=== PATIENT | female | born 1940 | race Caucasian/White ===

== ENCOUNTER 2016-12-15 14:08 | Inpatient (IN) | payer MEDICARE, OTHER ==
[2016-12-15] MEDS ORDERED: LISINOPRIL-HCT1 EAC3 PO (14:31)
[2016-12-15] MEDS ORDERED: LEXAPRO10 M2 PO (14:31)
[2016-12-15] MEDS ORDERED: LOFIBRA160 M1 PO (14:32)
[2016-12-15] MEDS ORDERED: ZOCOR40 M1 PO (14:32)
[2016-12-15] MEDS ORDERED: CLOBETASOL PROP50 M1 TP (14:36)
[2016-12-15] MEDS ORDERED: PROAIR HFA8.5 GM INH (14:37)
[2016-12-15] MEDS ORDERED: ASPIRIN EC81 MG PO (14:42)
[2016-12-15] MEDS ORDERED: FISH OIL 11000 MG/CA PO (14:42)
[2016-12-15] MEDS ORDERED: CITRACAL + D31 EACH PO (14:43)
[2016-12-15] MEDS ORDERED: IBUPROFEN200 M2 PO (14:43)
[2016-12-15 15:10] LABS: PROTHROMBIN TIME 11.2 SECONDS (9.0-13.6)
[2016-12-15 15:29] LABS: ANION GAP 16 mmol/L (0-20); BLOOD UREA NITROGEN 31 mg/dl (6-24); CALCIUM 8.7 mg/dl (8.5-10.5); CARBON DIOXIDE-VENOUS 25 mmol/L (22-32); CHLORIDE 106 mmol/l (96-110); CREATININE 1.39 mg/dl (0.50-1.10); GLUCOSE 206 mg/dL (70-110); POTASSIUM 3.6 mmol/L (3.7-5.1); SODIUM 143 mmol/L (135-145); eGFR VALUE FOR BLACK 43 mL/Min
[2016-12-15 15:30] LABS: BASO % 0.2 % (0-2); EOS % 0.4 % (0-7); EOSINOPHIL ABSOLUTE COUNT 0.1 tho/cmm (0.0-0.7); HCT-HEMATOCRIT 37.3 % (34.0-49.0); HGB-HEMOGLOBIN 11.6 gm/dl (12.0-15.5); IMMATURE GRANULOCYTES ABSOLUTE 0.09 tho/cmm (0-0.03); IMMATURE GRANULOCYTES PERCENT 0.4 % (0-0.3); LYMPH % 5.4 % (20-45); LYMPH ABSOLUTE COUNT 1.1 tho/cmm (0.8-4.5); MCH (MEAN CORPUSCULAR HGB) 30.1 pg (28.0-32.0); MCHC MEAN CORPUSCULAR HGB CONC 31.1 % (32.0-36.0); MCV (MEAN CELL VOLUME) 96.6 fl (82.0-96.0); MEAN PLATELET VOLUME 9.9 cmc (9.4-12.4); NEUTROPHIL ABSOLUTE COUNT 18.5 tho/cmm (1.6-8.0); NEUTROPHIL-AUTOMATED 18.5 tho/cmm (1.6-8.0); NEUTROPHILS % 88.6 % (40-80); PLATELET COUNT 305 tho/cmm (150-450); RED BLOOD COUNT 3.86 mil/cmm (4.00-5.20); RED CELL DISTRIBUTION WIDTH 13.2 % (12.4-16.4); WHITE BLOOD COUNT 20.9 tho/cmm (4.0-10.0)
[2016-12-15 16:29] LABS: URINE BILIRUBIN NEGATIVE (NEG); URINE BLOOD NEGATIVE (NEG); URINE GLUCOSE (UA) NEGATIVE (NEG); URINE KETONE SMALL (NEG); URINE LEUKOCYTE ESTERASE POSITIVE (NEG); URINE NITRITE NEGATIVE (NEG); URINE PROTEIN MODERATE (NEG); URINE SPECIFIC GRAVITY 1.025 (1.003-1.030)
[2016-12-15 16:30] LABS: URINE APPEARANCE HAZY; URINE COLOR YELLOW
[2016-12-15 16:37] LABS: URINE BACTERIA 1+; URINE EPITHELIAL CELLS 0-1 /[HPF] (0-10); URINE RBC 0 /[HPF] (0-5)
[2016-12-16 05:30] LABS: BASO % 0.2 % (0-2); EOS % 0.2 % (0-7); HCT-HEMATOCRIT 31.9 % (34.0-49.0); IMMATURE GRANULOCYTES ABSOLUTE 0.03 tho/cmm (0-0.03); IMMATURE GRANULOCYTES PERCENT 0.2 % (0-0.3); LYMPH % 9.2 % (20-45); LYMPH ABSOLUTE COUNT 1.1 tho/cmm (0.8-4.5); MCH (MEAN CORPUSCULAR HGB) 29.9 pg (28.0-32.0); MCHC MEAN CORPUSCULAR HGB CONC 31.3 % (32.0-36.0); MCV (MEAN CELL VOLUME) 95.2 fl (82.0-96.0); MEAN PLATELET VOLUME 9.6 cmc (9.4-12.4); MONO % 6.8 % (0-12); MONOCYTE ABSOLUTE COUNT 0.8 tho/cmm (0.0-1.2); NEUTROPHIL ABSOLUTE COUNT 10.3 tho/cmm (1.6-8.0); NEUTROPHIL-AUTOMATED 10.3 tho/cmm (1.6-8.0); NEUTROPHILS % 83.4 % (40-80); PLATELET COUNT 272 tho/cmm (150-450); RED BLOOD COUNT 3.35 mil/cmm (4.00-5.20); RED CELL DISTRIBUTION WIDTH 13.2 % (12.4-16.4); WHITE BLOOD COUNT 12.3 tho/cmm (4.0-10.0)
[2016-12-16 06:03] LABS: ANION GAP 14 mmol/L (0-20); BLOOD UREA NITROGEN 29 mg/dl (6-24); CALCIUM 8.7 mg/dl (8.5-10.5); CARBON DIOXIDE-VENOUS 28 mmol/L (22-32); CHLORIDE 106 mmol/l (96-110); CREATININE 1.16 mg/dl (0.50-1.10); GLUCOSE 112 mg/dL (70-110); SODIUM 144 mmol/L (135-145); eGFR VALUE FOR BLACK 54 mL/Min
[2016-12-16 06:06] LABS: POTASSIUM 3.9 mmol/L (3.7-5.1)
[2016-12-16 12:27] LABS: BASO % 0.3 % (0-2); EOS % 0.3 % (0-7); HCT-HEMATOCRIT 29.4 % (34.0-49.0); HGB-HEMOGLOBIN 8.9 gm/dl (12.0-15.5); LYMPH % 8.2 % (20-45); MCH (MEAN CORPUSCULAR HGB) 29.3 pg (28.0-32.0); MCHC MEAN CORPUSCULAR HGB CONC 30.3 % (32.0-36.0); MCV (MEAN CELL VOLUME) 96.7 fl (82.0-96.0); MONO % 8.9 % (0-12); NEUTROPHIL ABSOLUTE COUNT 9.5 tho/cmm (1.6-8.0); NEUTROPHIL-AUTOMATED 9.5 tho/cmm (1.6-8.0); NEUTROPHILS % 82.3 % (40-80); PLATELET COUNT 269 tho/cmm (150-450); PROTHROMBIN TIME 11.1 SECONDS (9.0-13.6); RED BLOOD COUNT 3.04 mil/cmm (4.00-5.20); RED CELL DISTRIBUTION WIDTH 12.8 % (12.4-16.4); WHITE BLOOD COUNT 11.6 tho/cmm (4.0-10.0)
[2016-12-16] MEDS ORDERED: XARELTO15 M1 PO (12:32)
[2016-12-18 03:17] LABS: BASO % 0.2 % (0-2); EOS % 2.4 % (0-7); EOSINOPHIL ABSOLUTE COUNT 0.3 tho/cmm (0.0-0.7); HCT-HEMATOCRIT 27.5 % (34.0-49.0); HGB-HEMOGLOBIN 8.6 gm/dl (12.0-15.5); IMMATURE GRANULOCYTES ABSOLUTE 0.05 tho/cmm (0-0.03); IMMATURE GRANULOCYTES PERCENT 0.5 % (0-0.3); LYMPH % 9.2 % (20-45); LYMPH ABSOLUTE COUNT 0.9 tho/cmm (0.8-4.5); MCHC MEAN CORPUSCULAR HGB CONC 31.3 % (32.0-36.0); MCV (MEAN CELL VOLUME) 95.8 fl (82.0-96.0); MEAN PLATELET VOLUME 9.3 cmc (9.4-12.4); MONO % 9.8 % (0-12); NEUTROPHILS % 77.9 % (40-80); PLATELET COUNT 238 tho/cmm (150-450); RED BLOOD COUNT 2.87 mil/cmm (4.00-5.20); RED CELL DISTRIBUTION WIDTH 13.3 % (12.4-16.4); WHITE BLOOD COUNT 10.3 tho/cmm (4.0-10.0)
[2016-12-19 03:43] LABS: BASO % 0.2 % (0-2); EOS % 7.5 % (0-7); EOSINOPHIL ABSOLUTE COUNT 0.7 tho/cmm (0.0-0.7); HCT-HEMATOCRIT 25.1 % (34.0-49.0); HGB-HEMOGLOBIN 7.9 gm/dl (12.0-15.5); IMMATURE GRANULOCYTES ABSOLUTE 0.04 tho/cmm (0-0.03); IMMATURE GRANULOCYTES PERCENT 0.4 % (0-0.3); LYMPH % 10.1 % (20-45); LYMPH ABSOLUTE COUNT 0.9 tho/cmm (0.8-4.5); MCHC MEAN CORPUSCULAR HGB CONC 31.5 % (32.0-36.0); MCV (MEAN CELL VOLUME) 95.4 fl (82.0-96.0); MEAN PLATELET VOLUME 8.9 cmc (9.4-12.4); MONO % 10.4 % (0-12); MONOCYTE ABSOLUTE COUNT 0.9 tho/cmm (0.0-1.2); NEUTROPHIL ABSOLUTE COUNT 6.5 tho/cmm (1.6-8.0); NEUTROPHIL-AUTOMATED 6.5 tho/cmm (1.6-8.0); NEUTROPHILS % 71.4 % (40-80); PLATELET COUNT 259 tho/cmm (150-450); RED BLOOD COUNT 2.63 mil/cmm (4.00-5.20); RED CELL DISTRIBUTION WIDTH 13.3 % (12.4-16.4); WHITE BLOOD COUNT 9.1 tho/cmm (4.0-10.0)
[2016-12-19 05:32] LABS: ANION GAP 12 mmol/L (0-20); BLOOD UREA NITROGEN 12 mg/dl (6-24); CALCIUM 8.4 mg/dl (8.5-10.5); CARBON DIOXIDE-VENOUS 26 mmol/L (22-32); CHLORIDE 108 mmol/l (96-110); GLUCOSE 108 mg/dL (70-110); SODIUM 142 mmol/L (135-145); eGFR VALUE FOR BLACK 74 mL/Min
[2016-12-19 16:36] LABS: HCT-HEMATOCRIT 25.7 % (34.0-49.0); HGB-HEMOGLOBIN 8.2 gm/dl (12.0-15.5); MCV (MEAN CELL VOLUME) 94.5 fl (82.0-96.0); RED CELL DISTRIBUTION WIDTH 13.1 % (12.4-16.4)
[2016-12-19 23:59] LABS: HCT-HEMATOCRIT 24.6 % (34.0-49.0); HGB-HEMOGLOBIN 7.7 gm/dl (12.0-15.5); RED CELL DISTRIBUTION WIDTH 13.2 % (12.4-16.4)
[2016-12-20 05:20] LABS: HCT-HEMATOCRIT 26.4 % (34.0-49.0); HGB-HEMOGLOBIN 8.3 gm/dl (12.0-15.5); MCV (MEAN CELL VOLUME) 94.6 fl (82.0-96.0); RED CELL DISTRIBUTION WIDTH 13.2 % (12.4-16.4)
[2016-12-20 17:09] LABS: HGB-HEMOGLOBIN 8.1 gm/dl (12.0-15.5); MCV (MEAN CELL VOLUME) 96.1 fl (82.0-96.0); RED CELL DISTRIBUTION WIDTH 12.8 % (12.4-16.4)
[2016-12-21 06:28] LABS: HCT-HEMATOCRIT 27.4 % (34.0-49.0); HGB-HEMOGLOBIN 8.4 gm/dl (12.0-15.5); MCV (MEAN CELL VOLUME) 94.5 fl (82.0-96.0); RED CELL DISTRIBUTION WIDTH 13.3 % (12.4-16.4)
[2016-12-21] MEDS ORDERED: XARELTO20 M1 PO (16:28)
[2016-12-21] MEDS ORDERED: NORCO 5-325 TA1 EACH PO (17:42)
[2017-02-12] MEDS ORDERED: COUMADIN5 M2 PO (11:43)
== END 2016-12-21 17:54 | DRG 175 ==
LOC: EDMED 14:08 → EMR2 19:38 → PCUB 21:25
PROVIDERS: Emergency Medicine; Internal Medicine Critical Care Medicine; Internal Medicine Pulmonary Disease; Nurse Practitioner; ADMIT Hospitalist
PROC: B54CZZZ Ultrasonography of Left Lower Extremity Veins (ICD-10-PCS; 2016-12-15)
PROC: 3E0F7GC Introduction of Other Therapeutic Substance into Respiratory Tract, Via Natural or Artificial Opening (ICD-10-PCS; 2016-12-15)
PROC: B246ZZZ Ultrasonography of Right and Left Heart (ICD-10-PCS; principal; 2016-12-16)
PROC: B54DZZZ Ultrasonography of Bilateral Lower Extremity Veins (ICD-10-PCS; 2016-12-19)
DX: I26.99 Other pulmonary embolism without acute cor pulmonale (principal); K66.1 Hemoperitoneum; N17.9 Acute kidney failure, unspecified; D62 Acute posthemorrhagic anemia; E11.65 Type 2 diabetes mellitus with hyperglycemia; E86.0 Dehydration; I82.402 Acute embolism and thrombosis of unspecified deep veins of left lower extremity; N39.0 Urinary tract infection, site not specified; D64.9 Anemia, unspecified; D72.829 Elevated white blood cell count, unspecified; E66.9 Obesity, unspecified; F32.9 Major depressive disorder, single episode, unspecified; I10 Essential (primary) hypertension; J45.909 Unspecified asthma, uncomplicated; M79.7 Fibromyalgia; R55 Syncope and collapse; Z68.33 Body mass index [BMI] 33.0-33.9, adult
CPT/HCPCS: J1644; J7030; P9612; Q9967

== ENCOUNTER 2017-01-09 13:28 | Inpatient (IN) | payer MEDICARE, OTHER ==
[~2017-01-09 13:28] MED LIST: ASPIRIN EC81 MG PO; CITRACAL + D31 EACH PO; CLOBETASOL PROP50 M1 TP; FISH OIL 11000 MG/CA PO; IBUPROFEN200 M2 PO; LEXAPRO10 M2 PO; LISINOPRIL-HCT1 EAC3 PO; LOFIBRA160 M1 PO; NORCO 5-325 TA1 EACH PO; PROAIR HFA8.5 GM INH; XARELTO15 M1 PO; XARELTO20 M1 PO; ZOCOR40 M1 PO
[2017-01-09] MEDS ORDERED: BREO ELLIPTA 11 EAC1 (14:08)
[2017-01-09 14:54] LABS: BASO % 0.4 % (0-2); EOS % 2.4 % (0-7); EOSINOPHIL ABSOLUTE COUNT 0.2 tho/cmm (0.0-0.7); HCT-HEMATOCRIT 31.9 % (34.0-49.0); HGB-HEMOGLOBIN 9.9 gm/dl (12.0-15.5); IMMATURE GRANULOCYTES ABSOLUTE 0.03 tho/cmm (0-0.03); IMMATURE GRANULOCYTES PERCENT 0.4 % (0-0.3); LYMPH % 11.7 % (20-45); LYMPH ABSOLUTE COUNT 0.9 tho/cmm (0.8-4.5); MCH (MEAN CORPUSCULAR HGB) 28.4 pg (28.0-32.0); MCV (MEAN CELL VOLUME) 91.4 fl (82.0-96.0); MEAN PLATELET VOLUME 8.8 cmc (9.4-12.4); MONO % 7.7 % (0-12); MONOCYTE ABSOLUTE COUNT 0.6 tho/cmm (0.0-1.2); NEUTROPHILS % 77.4 % (40-80); PLATELET COUNT 401 tho/cmm (150-450); RED BLOOD COUNT 3.49 mil/cmm (4.00-5.20); RED CELL DISTRIBUTION WIDTH 15.1 % (12.4-16.4); WHITE BLOOD COUNT 7.8 tho/cmm (4.0-10.0)
[2017-01-09 14:59] LABS: INR 1.9 INR (0.9-1.1); PROTHROMBIN TIME 22.9 SECONDS (9.0-13.6)
[2017-01-09 15:06] LABS: ANION GAP 12 mmol/L (0-20); BLOOD UREA NITROGEN 19 mg/dl (6-24); CALCIUM 9.2 mg/dl (8.5-10.5); CARBON DIOXIDE-VENOUS 26 mmol/L (22-32); CHLORIDE 105 mmol/l (96-110); CREATININE 1.09 mg/dl (0.50-1.10); GLUCOSE 106 mg/dL (70-110); POTASSIUM 4.4 mmol/L (3.7-5.1); SODIUM 139 mmol/L (135-145); eGFR VALUE FOR BLACK 58 mL/Min
[2017-01-10 06:00] LABS: BASO % 0.3 % (0-2); EOS % 5.4 % (0-7); EOSINOPHIL ABSOLUTE COUNT 0.3 tho/cmm (0.0-0.7); HCT-HEMATOCRIT 30.4 % (34.0-49.0); HGB-HEMOGLOBIN 9.4 gm/dl (12.0-15.5); IMMATURE GRANULOCYTES ABSOLUTE 0.02 tho/cmm (0-0.03); IMMATURE GRANULOCYTES PERCENT 0.3 % (0-0.3); LYMPH % 13.2 % (20-45); LYMPH ABSOLUTE COUNT 0.8 tho/cmm (0.8-4.5); MCH (MEAN CORPUSCULAR HGB) 28.1 pg (28.0-32.0); MCHC MEAN CORPUSCULAR HGB CONC 30.9 % (32.0-36.0); MONO % 9.3 % (0-12); MONOCYTE ABSOLUTE COUNT 0.6 tho/cmm (0.0-1.2); NEUTROPHIL ABSOLUTE COUNT 4.2 tho/cmm (1.6-8.0); NEUTROPHIL-AUTOMATED 4.2 tho/cmm (1.6-8.0); NEUTROPHILS % 71.5 % (40-80); PLATELET COUNT 375 tho/cmm (150-450); RED BLOOD COUNT 3.34 mil/cmm (4.00-5.20); WHITE BLOOD COUNT 5.9 tho/cmm (4.0-10.0)
[2017-01-10 07:43] LABS: BASO % 0.5 % (0-2); EOS % 4.6 % (0-7); EOSINOPHIL ABSOLUTE COUNT 0.3 tho/cmm (0.0-0.7); HCT-HEMATOCRIT 32.6 % (34.0-49.0); HGB-HEMOGLOBIN 10.1 gm/dl (12.0-15.5); IMMATURE GRANULOCYTES ABSOLUTE 0.03 tho/cmm (0-0.03); IMMATURE GRANULOCYTES PERCENT 0.5 % (0-0.3); LYMPH % 12.1 % (20-45); LYMPH ABSOLUTE COUNT 0.8 tho/cmm (0.8-4.5); MCH (MEAN CORPUSCULAR HGB) 28.3 pg (28.0-32.0); MCV (MEAN CELL VOLUME) 91.3 fl (82.0-96.0); MEAN PLATELET VOLUME 8.9 cmc (9.4-12.4); MONO % 9.6 % (0-12); MONOCYTE ABSOLUTE COUNT 0.6 tho/cmm (0.0-1.2); NEUTROPHIL ABSOLUTE COUNT 4.6 tho/cmm (1.6-8.0); NEUTROPHIL-AUTOMATED 4.6 tho/cmm (1.6-8.0); NEUTROPHILS % 72.7 % (40-80); PLATELET COUNT 360 tho/cmm (150-450); RED BLOOD COUNT 3.57 mil/cmm (4.00-5.20); RED CELL DISTRIBUTION WIDTH 15.1 % (12.4-16.4); WHITE BLOOD COUNT 6.3 tho/cmm (4.0-10.0)
[2017-01-10 07:56] LABS: ANION GAP 13 mmol/L (0-20); BLOOD UREA NITROGEN 14 mg/dl (6-24); CARBON DIOXIDE-VENOUS 26 mmol/L (22-32); CHLORIDE 110 mmol/l (96-110); CREATININE 0.92 mg/dl (0.50-1.10); GLUCOSE 106 mg/dL (70-110); SODIUM 145 mmol/L (135-145); eGFR VALUE FOR BLACK 71 mL/Min
[2017-01-10 08:09] LABS: POTASSIUM 4.3 mmol/L (3.7-5.1)
[2017-01-11] MEDS ORDERED: MIRALAX17 G2 PO (11:18)
[2017-01-11] MEDS ORDERED: LOVENOX80 MG/0.1 SC (11:36)
[2017-01-11] MEDS ORDERED: TYLENOL325 M2 PO (11:37)
[2017-01-11] MEDS ORDERED: SENOKOT8.6 M1 PO (11:40)
[2017-02-12] MEDS ORDERED: COUMADIN5 M2 PO (11:43)
== END 2017-01-11 12:10 | DRG 270 ==
LOC: RADSP 13:28 → SHSA 13:29 → CAR1 17:17
PROVIDERS: Nurse Practitioner Acute Care; Radiology Diagnostic Radiology; ADMIT Hospitalist
PROC: 02HV33Z Insertion of Infusion Device into Superior Vena Cava, Percutaneous Approach (ICD-10-PCS; 2017-01-09)
PROC: 06CD3ZZ Extirpation of Matter from Left Common Iliac Vein, Percutaneous Approach (ICD-10-PCS; principal; 2017-01-10)
PROC: 06H03DZ Insertion of Intraluminal Device into Inferior Vena Cava, Percutaneous Approach (ICD-10-PCS; 2017-01-10)
PROC: 047D3DZ Dilation of Left Common Iliac Artery with Intraluminal Device, Percutaneous Approach (ICD-10-PCS; 2017-01-10)
PROC: 047J3DZ Dilation of Left External Iliac Artery with Intraluminal Device, Percutaneous Approach (ICD-10-PCS; 2017-01-10)
PROC: B519YZA Fluoroscopy of Inferior Vena Cava using Other Contrast, Guidance (ICD-10-PCS; 2017-01-10)
DX: I82.402 Acute embolism and thrombosis of unspecified deep veins of left lower extremity (principal); K66.1 Hemoperitoneum; Z79.01 Long term (current) use of anticoagulants; Z86.711 Personal history of pulmonary embolism; Z85.3 Personal history of malignant neoplasm of breast; Z92.3 Personal history of irradiation; E78.5 Hyperlipidemia, unspecified; R73.03 Prediabetes; J45.909 Unspecified asthma, uncomplicated; K59.03 Drug induced constipation; T40.605A Adverse effect of unspecified narcotics, initial encounter; Z72.89 Other problems related to lifestyle; I10 Essential (primary) hypertension; Z91.81 History of falling
CPT/HCPCS: C1725; C1751; C1757; C1769; C1876; C1880; C1887; J1650; J2270; J7030; Q9967

== ENCOUNTER 2017-02-15 07:10 | Day surgery (SDC) | payer MEDICARE, OTHER ==
[~2017-02-15 07:10] MED LIST changes: +BREO ELLIPTA 11 EAC1; +COUMADIN5 M2 PO; +LOVENOX80 MG/0.1 SC; +MIRALAX17 G2 PO; +SENOKOT8.6 M1 PO; +TYLENOL325 M2 PO
[2017-02-15 07:45] LABS: BASO % 0.4 % (0-2); EOSINOPHIL ABSOLUTE COUNT 0.5 tho/cmm (0.0-0.7); HCT-HEMATOCRIT 37.9 % (34.0-49.0); HGB-HEMOGLOBIN 11.8 gm/dl (12.0-15.5); IMMATURE GRANULOCYTES ABSOLUTE 0.03 tho/cmm (0-0.03); IMMATURE GRANULOCYTES PERCENT 0.4 % (0-0.3); LYMPH % 17.9 % (20-45); LYMPH ABSOLUTE COUNT 1.4 tho/cmm (0.8-4.5); MCH (MEAN CORPUSCULAR HGB) 27.4 pg (28.0-32.0); MCHC MEAN CORPUSCULAR HGB CONC 31.1 % (32.0-36.0); MCV (MEAN CELL VOLUME) 88.1 fl (82.0-96.0); MEAN PLATELET VOLUME 9.2 cmc (9.4-12.4); MONO % 7.4 % (0-12); MONOCYTE ABSOLUTE COUNT 0.6 tho/cmm (0.0-1.2); NEUTROPHIL ABSOLUTE COUNT 5.5 tho/cmm (1.6-8.0); NEUTROPHIL-AUTOMATED 5.5 tho/cmm (1.6-8.0); NEUTROPHILS % 67.9 % (40-80); PLATELET COUNT 356 tho/cmm (150-450); RED CELL DISTRIBUTION WIDTH 14.9 % (12.4-16.4); WHITE BLOOD COUNT 8.1 tho/cmm (4.0-10.0)
[2017-02-15 07:46] LABS: INR 1.9 INR (0.9-1.1); PROTHROMBIN TIME 22.7 SECONDS (9.0-13.6)
[2017-02-15 07:52] LABS: ANION GAP 14 mmol/L (0-20); BLOOD UREA NITROGEN 28 mg/dl (6-24); CALCIUM 9.4 mg/dl (8.5-10.5); CARBON DIOXIDE-VENOUS 25 mmol/L (22-32); CHLORIDE 106 mmol/l (96-110); CREATININE 1.29 mg/dl (0.50-1.10); GLUCOSE 110 mg/dL (70-110); SODIUM 141 mmol/L (135-145); eGFR VALUE FOR BLACK 47 mL/Min
[2017-02-15 08:04] LABS: POTASSIUM 4.3 mmol/L (3.7-5.1)
== END 2017-02-15 10:15 ==
LOC: RADSP 07:10 → SHSB 07:12
PROVIDERS: Radiology Diagnostic Radiology
PROC: 06PY3DZ Removal of Intraluminal Device from Lower Vein, Percutaneous Approach (ICD-10-PCS; principal; 2017-02-15)
PROC: B5191ZZ Fluoroscopy of Inferior Vena Cava using Low Osmolar Contrast (ICD-10-PCS; 2017-02-15)
DX: Z45.89 Encounter for adjustment and management of other implanted devices (principal); I10 Essential (primary) hypertension; J45.909 Unspecified asthma, uncomplicated; R73.03 Prediabetes; E78.5 Hyperlipidemia, unspecified; E55.9 Vitamin D deficiency, unspecified; Z79.01 Long term (current) use of anticoagulants; Z79.899 Other long term (current) drug therapy; Z86.718 Personal history of other venous thrombosis and embolism; Z86.711 Personal history of pulmonary embolism; Z85.3 Personal history of malignant neoplasm of breast; Z98.890 Other specified postprocedural states
CPT/HCPCS: C1751; C1769; C1773; C1894; J2250; J3010; J7030